=== PATIENT | female | born 1940 | race Caucasian/White ===

== ENCOUNTER 2017-03-29 15:49 | Inpatient (IN) | payer MEDICARE, BC ==
--- NOTE | ~2017-03-29 | CN ---
Consultation Report [facility] [address] [place]. [address] NAME: COLLEEN BOX : 38 STATUS : ADM IN PAT#: [id number] AGE: 76 ADM/REG DATE : 03/29/17 MR#: [id number] REPORT SERV DATE: 03/30/17 DICTATED BY: LUKASZ PALACIO III DATE: 03/30/17 REPORT STATUS : Draft TRANSCRIBED BY: MODNicole DATE: 03/30/17 SURGICAL CONSULTATION DATE OF CONSULTATION: HISTORY OF PRESENT ILLNESS: The patient is a 76-year-old diabetic obese female with a several-day history of draining wound, tenderness, and heat in the left lower abdomen. The patient has had a ventral hernia present for over a year that has been present in the middle portion of her abdomen and has been giving herself injections in the entire lower abdominal region for her insulin injections. She noticed the day prior to admission, which was 03/29/2017, redness and some purulent drainage. She came to the emergency room and was evaluated in the area supposedly drained in the ED. The patient has also complained of some redness and soreness in her right foot off and on since December of this year. She was hospitalized for cellulitis placed on antibiotics some time earlier this year. She has been off antibiotics for about a week and the redness has seemingly recurred. The patient's abdominal pain is described as superficial and localized in the area of redness and previous drainage site. The severity has been extremely high with a 10/10 reported. She denies fever, chills, diaphoresis, but she is on some steroids, which may blunt that effect. She denies shortness of breath or cough. She has been very weak and unstable over the last few days, has fallen several times. She has poorly controlled diabetes mellitus. Blood sugars often over 200. REVIEW OF SYSTEMS: Her review of systems is carefully reviewed and does not add further significance other than she states she has been gaining weight over the last few weeks, but is not sure quite how much weight. PAST MEDICAL HISTORY: Diabetes; COPD, on steroids; hypothyroidism; anemia; hypertension; high cholesterol; colon polyps with Dr. Ismael Espinosa; pulmonary nodules; MRSA infections in the past; depression and anxiety; but denies cardiac disease. PAST SURGICAL HISTORY: Include hysterectomy, large perianal and buttock abscess, drained by this physician in the past, actually done on 09/08/2014, where there is a left perianal abscess extending up to the buttocks that grew MRSA at that time. Further past history includes cholecystectomy, sinus surgery, left breast fatty tumor removal, tubal ligation, left knee surgery. ALLERGIES: SHE IS ALLERGIC TO PENICILLIN AND SULFA. SOCIAL HISTORY: She stopped smoking about five years ago and denies alcohol use. She is a since 2003 and has a sitter who stays with her 24 hours a day, seven days a week. Can get around with a walker or wheelchair with minimal assistance. FAMILY HISTORY: Hard to assess since she is adopted. Her daughter has a history of Consultation Report [address] [place]. [address] NAME: COLLEEN BOX : 38 STATUS : ADM IN [facility]#: [id number] AGE: 76 ADM/REG DATE : 03/29/17 MR#: [id number] REPORT SERV DATE: 03/30/17 DICTATED BY: LUKASZ PALACIO III DATE: 03/30/17 REPORT STATUS : Draft TRANSCRIBED BY: RENA DATE: 03/30/17 scleroderma and hypothyroidism and a strong family history of diabetes. CURRENT MEDICATIONS: Include albuterol, Lipitor, Symbicort, BuSpar, Klonopin, Cymbalta, Levemir 20 units subcu at nighttime, sliding scale insulin, Combivent, levothyroxine, Protonix, prednisone 10 mg daily, Zoloft 25 mg daily, Janumet b.i.d., telmisartan/hydrochlorothiazide 40/12.5 daily, Restoril p.o. at bedtime, and magnesium over the counter. PHYSICAL EXAMINATION: GENERAL: She is a very obese white female, in no acute distress at the time of this exam with some left lower quadrant abdominal pain. Her overall body habitus is morbidly obese. HEENT: Fairly nonlateralizing. She was a fairly good historian. NECK: Supple. CHEST: Some occasional rhonchi in the bases. HEART: She had a tachycardia with a regular sinus rhythm. ABDOMEN: Soft with tenderness around the area of the suprapubic and left lower quadrant and a firm feeling hernia in the mid abdomen near her umbilicus, which is protruding inferiorly due to her obesity. She has a significant panniculus with obvious skin injection reactions from multiple insulin injections. The hernia effect area is about 8 x 10 cm area of fullness and induration without tenderness. She has a 12 x 12 cm area of the left lower quadrant that is erythematous, indurated with tenderness, and a small 1 cm transverse incision, which was not open draining. Her bowel sounds were normal, but distant due to her body habitus. CT reviewed shows superficial air pockets in the area with some fat stranding, but little organized abscess was seen. Her procalcitonin 0.5 and her leukocytosis went from 15 to 14 in the last 24 hours. EXTREMITIES: Her right lower extremity shows good pulses in both lower extremities with mild erythema in the right foot with minimal tenderness. No ulceration or site for entry for cellulitic changes. IMPRESSION: The patient has cellulitis with a small abscess area in the left lower abdominal region that is inadequately drained. At this point, needs to be opened more and packed open with a more deep culture, although with her on antibiotics, this may be not productive. She has mild cellulitis of the right foot, which is resolving and no further therapy other than and IV antibiotics will be recommended. She has hernia in the chronic ventral area that is incarcerated, but not strangulated and no surgical intervention would be recommended on this in the foreseeable future. In addition, she has problems with diabetes mellitus, poorly controlled, and hemoglobin A1c elevated at 8.2. She has chronic obstructive pulmonary disease on steroids, which certainly masked some of her effects. We will try to open the area of drainage and pack it so that we can get more decompression. Continue antibiotics, cultures, and may well need to add more broad-spectrum coverage until cultures can be assessed. Surgical wound healing consult orders for incision tray with informed consent having been given and the patient's risk of surgical drainage described to her at length. Consultation Report [address] [place]. [address] NAME: COLLEEN BOX : 38 STATUS : ADM IN [facility]#: [id number] AGE: 76 ADM/REG DATE : 03/29/17 MR#: [id number] REPORT SERV DATE: 03/30/17 DICTATED BY: LUKASZ PALACIO III DATE: 03/30/17 REPORT STATUS : Draft TRANSCRIBED BY: RENA DATE: 03/30/17 RB/KARLL Lukasz Palacio III, M.D. / [id number] CC: Khurram Lambert M.D. [facility]
--- NOTE | ~2017-03-29 | DS ---
Discharge Summary [facility] [address] [place]. [address] NAME: COLLEEN BOX : 38 STATUS : ADM IN [facility]#: [id number] AGE: 76 ADM/REG DATE : 03/29/17 MR#: [id number] REPORT SERV DATE: 04/04/17 DICTATED BY: BENJAMÍN QUIGLEY DATE: 04/04/17 REPORT STATUS : Draft TRANSCRIBED BY: MODL DATE: 04/04/17 ADMISSION DATE: 03/29/2017 DISCHARGE DATE: 04/04/2017 CURRENT HOSPITAL DIAGNOSES: Abdominal wall Methicillin-resistant Staphylococcus aureus abscess, status post incision and drainage, right foot cellulitis, diabetes, chronic obstructive pulmonary disease, and right breast pimple. CONSULTATIONS AND PROCEDURES: As listed in interim summary. CURRENT PHYSICAL FINDINGS AND HPI: Please see initial dictated H and P by Dr. Lambert on the as well as interim summary by Dr. Finn on the . I took over the patient's care on the and will dictate from that point. Basically, the patient has had MRSA in the past, came in with a lower abdominal and possible right breast lesion, status post I and D, was on vancomycin. Plan was to discontinue on oral Zyvox. Other issues while she was hospitalized, she did receive treatment for her diabetes. She had no significant flare for COPD. When it was noted that she had medication interactions multiple with oral Zyvox, it was elected to transfer to [facility] to continue her IV antibiotics, post treatment. The patient was agreeable. She received a PICC line and was discharged in stable condition on the . DISCHARGE MEDICATIONS: Lipitor 20 at bedtime; BuSpar 15 b.i.d.; vancomycin; Cymbalta 60 b.i.d.; Levemir 20, level 3 sliding scale with 5 units of NovoLog in addition with meals; levothyroxine 75; magnesium 400; Bactroban cream to her nose and skin areas; Protonix 40; Florastor b.i.d.; Zoloft 25; Restoril 30; Klonopin 1 mg; prednisone 5, a dose decreased from 10; Combivent inhaler; Symbicort 160/4.5 two puffs twice daily; Tylenol p.r.n.; Colace p.r.n.; glucose tablet p.r.n.; Zofran p.r.n.; Percocet q.6 h. p.r.n.; albuterol nebs q.i.d.; Janumet ; Micardis hydrochlorothiazide 40/12.5. TLF/MODL Benjamín Quigley M.D. / [id number] CC: Rodrigo Geiger NATHAN
--- NOTE | ~2017-03-29 | HP ---
History And Physical [facility] [id number] [place]. [address] NAME: COLLEEN BOX : 38 STATUS : ADM IN [facility]#: [id number] AGE: 76 ADM/REG DATE : 03/29/17 MR#: [id number] REPORT SERV DATE: 03/30/17 DICTATED BY: RADHA VALDEZ DATE: 03/29/17 REPORT STATUS : Draft TRANSCRIBED BY: MODL DATE: 03/29/17 DATE OF ADMISSION: 03/29/2017 CHIEF COMPLAINT: A 76-year-old female, presenting with draining abdominal wound. HISTORY OF PRESENT ILLNESS: The patient's history was obtained through careful interview with the patient and the sitter, coupled with review of [facility] medical records. The patient has been dealing with a ventral hernia for more than a year, but she has noticed over the last week or more has been increasing swelling, redness, and pain in this area. It was not until the day leading up to admission that began to develop redness and slight purulent drainage. She came in to our emergency department and it was determined that she had an abscess that was partially drained in the emergency department and sent for cultures. The patient has also been suffering with redness in her right foot since December 2016. She was initially hospitalized earlier than that in 2017 for "cellulitis," placed on antibiotics and had complete resolution of the discoloration of her foot but then after being off antibiotics for just about a week, the redness resumed and in particular over the last one or two weeks, the redness has become "lino red" in color and increasingly hot and painful. There has been slight discoloration and redness of the left foot as well. The patient has had outpatient evaluation by a vascular surgeon, with what sounds like arterial and venous Doppler ultrasounds that have been "negative." The patient describes mostly just suprapubic abdominal discomfort related to her infection. It radiates upward into her abdomen, it has an aching quality. She has been "in tears" because of the pain, it gets up to 10/10 in severity. She has had no fevers or chills or diaphoresis, but she has had hot flashes, and a flushed feeling in her face. No shortness of breath. She has a chronic cough that is unchanged from baseline. No diarrhea, no nausea or vomiting. She has been weak, unstable, and over the last three days, her sitter claims that she has fallen about 10 times. She never hit her head or injures herself fortunately. She has had poorly controlled diabetes. Recently most blood sugars over 200. The maximum was about 330 earlier this week. REVIEW OF SYSTEMS: Otherwise, a 14-point review of systems was obtained and was negative. PAST MEDICAL HISTORY: 1. Diabetes. 2. COPD. 3. Hypothyroidism. History And Physical [address] [address] NAME: COLLEEN BOX : 38 STATUS : ADM IN PAT#: [id number] AGE: 76 ADM/REG DATE : 03/29/17 MR#: [id number] REPORT SERV DATE: 03/30/17 DICTATED BY: RADHA VALDEZ DATE: 03/29/17 REPORT STATUS : Draft TRANSCRIBED BY: RENA DATE: 03/29/17 4. Anemia. 5. Hypertension. 6. Elevated cholesterol. 7. Colon polyps seen by Dr. Ismael Espinosa. 8. Pulmonary nodules. 9. MRSA recurrent infections. 10.Depression and anxiety. 11.No cardiac disease. PAST SURGICAL HISTORY: 1. Hysterectomy. 2. Buttocks abscess drainage by Dr. Palacio. 3. Cholecystectomy. 4. Sinus surgery. 5. Left breast fatty tumor removal. 6. Tubal ligation. 7. Left knee surgery. ALLERGIES: PENICILLIN AND SULFA. SOCIAL HISTORY: Quit smoking some 5 years ago. No alcohol abuse. Has been a since 2003, has a sitter who stays with her 24 hours a day 7 days a week. She gets around with a walker or a wheelchair. FAMILY HISTORY: She was adopted. Her daughter has scleroderma and hypothyroidism. There is also an apparent family history of diabetes. CURRENT MEDICATIONS: Include albuterol inhaler, Lipitor 20 mg p.o. daily, Symbicort two puffs inhaled twice a day, BuSpar 15 mg p.o. b.i.d., Klonopin 1 mg p.o. at bedtime, Cymbalta 60 mg p.o. b.i.d., Levemir 20 units subcutaneous in the nighttime sliding scale insulin, Combivent, levothyroxine 75 mcg p.o. daily, Protonix 40 mg p.o. daily, prednisone 10 mg p.o. daily, Zoloft 25 mg p.o. daily, Janumet p.o. b.i.d., telmisartan/hydrochlorothiazide 40/12.5 p.o. daily, Restoril 30 mg p.o. at bedtime, and magnesium. PHYSICAL EXAMINATION: VITAL SIGNS: Temperature 98.4, pulse 108, blood pressure 130/76, respiratory rate 22, O2 saturation 95% on 2 L nasal cannula. GENERAL: A pleasant, cooperative female, in no evidence of distress at this time. Her pain has been well managed in the emergency department. HEENT: Pupils equal, round, and reactive to light. No conjunctival pallor. No scleral icterus. Nares are patent. Oropharynx is clear of obstruction. Moist mucous membranes. NECK: Trachea midline. No thyromegaly. LYMPH: No cervical lymphadenopathy. No supraclavicular lymphadenopathy. No inguinal lymphadenopathy. RESPIRATORY: Clear to auscultation at bases. No wheezes, rales, or rhonchi. Normal respiratory effort. CARDIOVASCULAR: Tachycardic, regular rhythm. No murmurs, rubs, or gallops. No extremity History And Physical [address] [address] NAME: COLLEEN BOX : 38 STATUS : ADM IN [facility]#: [id number] AGE: 76 ADM/REG DATE : 03/29/17 MR#: [id number] REPORT SERV DATE: 03/30/17 DICTATED BY: RADHA VALDEZ DATE: 03/29/17 REPORT STATUS : Draft TRANSCRIBED BY: RENA DATE: 03/29/17 edema is appreciated. ABDOMEN: Soft, minimally tender around the area of her suprapubic and lower abdominal hernia and abscess. No guarding, no rebound. Nondistended. No hepatosplenomegaly. DERMATOLOGICAL: The patient's right foot is hot and very red, tender to palpation. No ulcerations though. No purulent drainage. Over her abdominal wall, there is an extensive area of erythema, heat, swelling, tenderness, and drainage from a site made by the emergency department for drainage of pus, otherwise warm and dry. EXTREMITIES: No pallor, no cyanosis. PSYCHIATRIC: Normal affect. Good mood. Alert and oriented x3. LABORATORY DATA: White blood count 15, hemoglobin 12, hematocrit 36, platelets 258. Sodium 132, potassium 4.1, chloride 190, bicarb 38, BUN 9, creatinine 0.84, glucose 170. STUDIES: CT scan of the abdomen and pelvis is pending at the time of dictation. ASSESSMENT AND PLAN: 1. Sepsis with positive criteria that includes white blood cell count of 15, tachycardia, and tachypnea. Check blood cultures. Check wound cultures. Place on IV vancomycin for history of recurrent MRSA. 2. Abdominal wall abscess. Consult surgeon, Dr. Palacio, who has been involved with the patient in the past. Check a CT scan of the abdomen and pelvis to define extent of abscess. Check wound culture. Placed on IV vancomycin. 3. Right foot cellulitis. Placed on IV vancomycin. History of MRSA. 4. Diabetes. Check hemoglobin A1c. Placed on basal insulin and sliding scale insulin. 5. Chronic obstructive pulmonary disease, placed on DuoNeb nebulizers. KPL/MODL Radha Valdez M.D. / [id number] CC: Rodrigo France Dr.
--- NOTE | ~2017-03-29 | DS ---
Discharge Summary [facility] [facility] [address] [place]. [address] NAME: COLLEEN BOX : 38 STATUS : ADM IN [facility]#: [id number] AGE: 76 ADM/REG DATE : 03/29/17 MR#: [id number] REPORT SERV DATE: 04/05/17 DICTATED BY: BENJAMÍN QUIGLEY DATE: 04/05/17 REPORT STATUS : Draft TRANSCRIBED BY: MODL DATE: 04/05/17 ADMISSION DATE: 03/29/2017 DISCHARGE DATE: ADDENDUM: Ms. Box was discharged on 04/04; however, accepting facility required a bariatric bed for her, which could not be provided on the evening at discharge. On reassessment today, there has been no change in the patient's condition and she is still felt stable for discharge. DISPOSITION: Discharge to rehab when bed available. MEGANF/RENA Benjamín Quigley M.D. / [id number] CC: Rodrigo Geiger Nathan
--- NOTE | ~2017-03-29 | OP ---
Record Of Operation [facility] [address] [place]. [address] NAME: COLLEEN BOX : 38 STATUS : ADM IN PAT#: [id number] AGE: 76 ADM/REG DATE : 03/29/17 MR#: [id number] REPORT SERV DATE: 04/02/17 DICTATED BY: LUKASZ PALACIO III DATE: 03/30/17 REPORT STATUS : Draft TRANSCRIBED BY: MODL DATE: 03/30/17 DATE OF PROCEDURE: 03/30/2017 The time-out was held in agreement with all personnel about allergies and procedure to be for performed and equipment available was noted. PROCEDURE: Incision and drainage with culture and sensitivity for anaerobic, aerobic, and fungus, with packing of an abscess area in the left lower quadrant of the abdomen with half- inch iodoform gauze. ANESTHESIA: 0.5 mg of Dilaudid IV, 2% lidocaine local infiltration, 20 mL utilized. The patient tolerated the procedure well. Procedure done with culture and sensitivity. ESTIMATED BLOOD LOSS: 10 mL. PACKING: One-half inch iodoform gauze and one piece packed into the abscess cavity and broken up loculations. PROCEDURE IN DETAIL: The patient was prepped and draped in the routine fashion under adequate infiltrative anesthesia after an appropriate time-out had been performed. A small area where there had been an incision performed about 24 hours ago in the ED was lengthened to 3 cm size and digital breaking up of loculations in the area accomplished. Curved Crile hemostat was also used to break up loculations with copious bleeding incurred, which was controlled by silver nitrate and packing. The cavitary area was approximately 6 x 4 cm beneath the incision, but did not extend below the fascia. This was in the left lower quadrant region. After this had been done and all loculations lysed, the opening was packed with approximately 3-1/2 feet of half-inch iodoform gauze leaving the tail of the gauze hanging out for further packing and removal. The wound was then dressed with bulky dressing material. Culture and sensitivity requested. The patient will be covered with the Vancocin, which is already instituted, and add Levaquin, Flagyl, and Florastor as a probiotic. A K-pad will be utilized and topical SilvaSorb gel to the periwound and the area also performed. The right foot where some cellulitic changes had been noted was also ordered to have some topical SilvaSorb gel to the area, although this was a very mild cellulitic change clinically. RB/MODL Lukasz Palacio III, M.D. / [id number] Record Of [address] [address] NAME: COLLEEN BOX : 38 STATUS : ADM IN PAT#: [id number] AGE: 76 ADM/REG DATE : 03/29/17 MR#: [id number] REPORT SERV DATE: 04/02/17 DICTATED BY: LUKASZ PALACIO III DATE: 03/30/17 REPORT STATUS : Draft TRANSCRIBED BY: RENA DATE: 03/30/17 CC: Rodrigo [facility] [place]
--- NOTE | ~2017-03-29 | IDS ---
Interim Discharge Summary [facility] [address] [place]. [address] NAME: COLLEEN BOX : 38 STATUS : ADM IN [facility]#: [id number] AGE: 76 ADM/REG DATE : 03/29/17 MR#: [id number] REPORT SERV DATE: 04/03/17 DICTATED BY: NOVA LOCKE DATE: 04/03/17 REPORT STATUS : Draft TRANSCRIBED BY: MODL DATE: 04/03/17 ADMISSION DATE: 03/29/2017 DISCHARGE DATE: DATE OF INTERIM SUMMARY: 03/29/2017 to 04/02/2017 CURRENT DIAGNOSES: 1. Abdominal wall MRSA abscess, status post surgical debridement by Dr. Palacio. 2. Right foot cellulitis. 3. Sepsis present on arrival. 4. Diabetes type 2. 5. Chronic obstructive pulmonary disease. 6. Right breast pimple. PROCEDURES AND CONSULT: Dr. Palacio, with surgical drainage of abscess, positive for MRSA. HOSPITAL COURSE: Please see H and P for complete details. HISTORY OF PRESENT ILLNESS: Briefly, Ms. Box is a 76-year-old female from the [facility] who presents after having severe symptoms of tachycardia, tachypnea, and additionally found to have leukocytosis, has had history of MRSA infection and found to have abdominal wall abscess, was started on vancomycin. After surgical debridement, was started on Levaquin and Flagyl additionally for additional coverage. The patient had clinical improvement after surgical I and D and broad antibiotics. Cultures have since returned MRSA and have been titrated back down to vancomycin. The patient's symptoms have improved, although still has occasionally have mild tachypnea and tachycardia. Leukocytosis has resolved. The patient does have concurrent foot cellulitis with chronic venous stasis. Cellulitis has shown improvement. Additionally has tinea, which will need to be addressed once acute infection has improved. For diabetes type 2, the patient has had increased in Levemir and monitoring on sliding scale insulin. The patient is on chronic prednisone which could be confounding factor with COPD history, O2, and ipratropium. The patient has had development of right breast pimple and currently monitoring this for drainage. The patient currently is continued on vancomycin treatment and may be able to transition to p.o. treatment in the next 24 to 48 hours for possible disposition. Pending clearance from surgery and her continued improvement in abscess, cellulitis. We will need to continue following of small breast pimple for possible cause of additional cellulitis. DDN/MODL Nova Locke MD / [id number] Interim Discharge Summary [address] [address] NAME: COLLEEN BOX : 38 STATUS : ADM IN PAT#: [id number] AGE: 76 ADM/REG DATE : 03/29/17 MR#: [id number] REPORT SERV DATE: 04/03/17 DICTATED BY: NOVA LOCKE DATE: 04/03/17 REPORT STATUS : Draft TRANSCRIBED BY: RENA DATE: 04/03/17 CC: MD Donal Beltran DO
[~2017-03-29 15:49] MED LIST: *UNABLE2; ACET500CAP PO; ADDER10 PO; ADDERALL; ADDERALL20 MG PO; ADDERALL30 MG PO; ADDERALL5 MG PO; ALBUTEROL5 INH; ALIGN4 MG PO; AMARYL1 MG PO; AMBIEN CR12.5 MG PO; BEN25 PO; BIAXIN5 PO; BIOTENE RINSE PO; BUSPAR15 M1 PO; BUSPAR30 MG PO; CENTRUM TAB1 TAB PO; COMBIVENT INH; CYMBALTA30 PO; CYMBALTA60 PO; DALIRESP500 MCG PO; GAS-X80 MG PO; HYDROCORT12 TOP; IBU400 PO; IOPHEN C-NR1 ML OR; JANUMET1 TA1 PO; JANUMET1 TAB PO; KLONO1 PO; KLONO5 PO; LEVOTHYROXIN50 MCG PO; LIPITOR20 PO; MAGTRATE500 MG PO; MICARDIS HC1 PO; NASONEX NAS; NYS500UDL PO; OTC IRON PO; P10 PO; PROAIR HFA INH; PROTONIX PO; PROVENTSOL INH; PROZAC40 MG PO; RESTORIL30 MG PO; SPIRIVA INH; SUDAFED PO; SYMBICORT; SYMBICORT 160/41 INH INH; SYN.05 PO; SYN075 PO; TETRACYCLINE250 MG PO; TYLENOL 8 HR650 MG PO; TYLENOL ARTH650 MG PO; VYVANSE30 MG OR; XANAX1 MG PO; [UNRECOGNIZED DRUG - SUPPLY] EX
[2017-03-29 16:27] LABS: BASOPHILS 0.1 %; BASOPHILS ABSOLUTE 0.02 10/3/uL (0.0-0.16); EOSINOPHILS 0.3 %; EOSINOPHILS ABSOLUTE 0.05 10/3/uL (0.0-0.53); HEMATOCRIT 36.2 % (36.0-48.0); HEMOGLOBIN 12.3 g/dL (12.0-16.0); IMMATURE GRANULOCYTES 0.5 %; IMMATURE GRANULOCYTES ABSOLUTE 0.08 10/3/uL (0.0-0.11); LYMPHOCYTES 5.1 %; LYMPHOCYTES ABSOLUTE 0.78 10/3/uL (0.67-4.30); MEAN PLATELET VOLUME 9.1 fL (9.2-13.0); MONOCYTES 8.7 %; MONOCYTES ABSOLUTE 1.33 10/3/uL (0.21-1.20); NEUTROPHILS 85.3 %; NEUTROPHILS ABSOLUTE 12.99 10/3/uL (2.02-8.40); PLATELET COUNT 258 10/3/uL (150-400); RBC DISTRIBUTION WIDTH 13.1 % (12.0-16.0); RED CELL COUNT 3.71 10/6/uL (4.0-5.6); WHITE BLOOD CELLS 15.3 10/3/uL (4.5-10.5)
[2017-03-29 16:30] LABS: MANUAL DIFF NO %; MEAN CORPUSCULAR HEMOGLOB 33.2 pg (26.0-34.0); MEAN CORPUSCULAR VOLUME 97.6 fL (80-100)
[2017-03-29 16:44] LABS: A/G RATIO 0.8 (0.7-1.9); ALBUMIN 3.6 G/DL (3.5-5.0); ALKALINE PHOSPHATASE 91 U/L (45-117); BUN (BLOOD UREA NITROGEN) 9 MG/DL (6-23); CALCIUM, SERUM 9.4 MG/DL (8.5-10.4); CHLORIDE, SERUM 90 MMOL/L (96-112); CO2 (CARBON DIOXIDE) 38 MMOL/L (24-34); CREATININE 0.84 MG/DL (0.55-1.02); GFR AFRICAN AMERICAN 77 ML/MIN (>=60); GFR NON AFRICAN AMERICAN 67 ML/MIN (>=60); GLOBULIN 4.3 G/DL (2.5-4.1); GLUCOSE, SERUM 170 MG/DL (60-99); POTASSIUM, SERUM 4.1 MMOL/L (3.5-5.3); SGOT(AST) 21 U/L (5-40); SGPT(ALT) 41 U/L (5-65); SODIUM, SERUM 132 MMOL/L (135-148); TOTAL BILIRUBIN 0.6 MG/DL (0-1.2); TOTAL PROTEIN 7.9 G/DL (6.0-8.5)
[2017-03-29] MEDS ORDERED: JANUMET1 TA1 PO (17:32)
[2017-03-29] MEDS ORDERED: CYMBALTA60 PO (17:33)
[2017-03-29] MEDS ORDERED: BUSPAR15 M1 PO (17:33)
[2017-03-29] MEDS ORDERED: ZOLOFT25 MG PO (17:34)
[2017-03-29] MEDS ORDERED: PROTONIX PO (17:35)
[2017-03-29] MEDS ORDERED: P10 PO (17:35)
[2017-03-29] MEDS ORDERED: MAGNESIUM OXIDE TAB PO (17:36)
[2017-03-29] MEDS ORDERED: LEVOTHYROXIN75 MCG PO (17:36)
[2017-03-29] MEDS ORDERED: RESTORIL30 MG PO (17:37)
[2017-03-29] MEDS ORDERED: LIPITOR20 PO (17:37)
[2017-03-29] MEDS ORDERED: MICARDIS HC1 PO (17:37)
[2017-03-29] MEDS ORDERED: KLONO1 PO (17:37)
[2017-03-29] MEDS ORDERED: SYMBICORT 160/41 INH INH (17:42)
[2017-03-29] MEDS ORDERED: COMBIVENT RESPIM4 GM INH (17:42)
[2017-03-29] MEDS ORDERED: HUMALOG SC (17:43)
[2017-03-29] MEDS ORDERED: ALBUTEROL0.083 % INH (17:43)
[2017-03-29] MEDS ORDERED: LEVEMIR SC (17:44)
[2017-03-30 07:01] LABS: PROTIME (NOT ORD) 12.7 SEC (12.0-14.5)
[2017-03-30 07:03] LABS: PARTIAL THROMBO TIME 34.9 SEC (22.5-37.2)
[2017-03-30 07:11] LABS: BASOPHILS 0.2 %; BASOPHILS ABSOLUTE 0.03 10/3/uL (0.0-0.16); EOSINOPHILS 1.5 %; EOSINOPHILS ABSOLUTE 0.21 10/3/uL (0.0-0.53); HEMATOCRIT 34.9 % (36.0-48.0); IMMATURE GRANULOCYTES 0.8 %; IMMATURE GRANULOCYTES ABSOLUTE 0.11 10/3/uL (0.0-0.11); LYMPHOCYTES 15.2 %; LYMPHOCYTES ABSOLUTE 2.12 10/3/uL (0.67-4.30); MANUAL DIFF NO %; MEAN CORPUS HGB CONC 34.4 g/dL (32.0-36.0); MEAN CORPUSCULAR HEMOGLOB 33.2 pg (26.0-34.0); MEAN CORPUSCULAR VOLUME 96.7 fL (80-100); MEAN PLATELET VOLUME 9.1 fL (9.2-13.0); MONOCYTES 11.1 %; MONOCYTES ABSOLUTE 1.55 10/3/uL (0.21-1.20); NEUTROPHILS 71.2 %; NEUTROPHILS ABSOLUTE 9.97 10/3/uL (2.02-8.40); PLATELET COUNT 241 10/3/uL (150-400); RBC DISTRIBUTION WIDTH 13.5 % (12.0-16.0); RED CELL COUNT 3.61 10/6/uL (4.0-5.6)
[2017-03-30 07:23] LABS: A/G RATIO 0.8 (0.7-1.9); ALBUMIN 3.4 G/DL (3.5-5.0); ALKALINE PHOSPHATASE 82 U/L (45-117); BUN (BLOOD UREA NITROGEN) 8 MG/DL (6-23); CALCIUM, SERUM 9.2 MG/DL (8.5-10.4); CHLORIDE, SERUM 92 MMOL/L (96-112); CO2 (CARBON DIOXIDE) 33 MMOL/L (24-34); CREATININE 0.84 MG/DL (0.55-1.02); GFR AFRICAN AMERICAN 77 ML/MIN (>=60); GFR NON AFRICAN AMERICAN 67 ML/MIN (>=60); GLOBULIN 4.1 G/DL (2.5-4.1); GLUCOSE, SERUM 223 MG/DL (60-99); POTASSIUM, SERUM 3.7 MMOL/L (3.5-5.3); SGOT(AST) 21 U/L (5-40); SGPT(ALT) 37 U/L (5-65); SODIUM, SERUM 135 MMOL/L (135-148); TOTAL BILIRUBIN 0.6 MG/DL (0-1.2); TOTAL PROTEIN 7.5 G/DL (6.0-8.5)
[2017-03-30 08:07] LABS: PROCALCITONIN <0.05 ng/mL (<0.5)
[2017-03-31 07:03] LABS: BASOPHILS 0.2 %; BASOPHILS ABSOLUTE 0.03 10/3/uL (0.0-0.16); EOSINOPHILS 2.1 %; EOSINOPHILS ABSOLUTE 0.25 10/3/uL (0.0-0.53); HEMATOCRIT 35.4 % (36.0-48.0); IMMATURE GRANULOCYTES 0.9 %; IMMATURE GRANULOCYTES ABSOLUTE 0.11 10/3/uL (0.0-0.11); LYMPHOCYTES 12.6 %; LYMPHOCYTES ABSOLUTE 1.53 10/3/uL (0.67-4.30); MEAN CORPUS HGB CONC 33.9 g/dL (32.0-36.0); MEAN CORPUSCULAR HEMOGLOB 33.9 pg (26.0-34.0); MONOCYTES 12.7 %; MONOCYTES ABSOLUTE 1.54 10/3/uL (0.21-1.20); NEUTROPHILS 71.5 %; NEUTROPHILS ABSOLUTE 8.68 10/3/uL (2.02-8.40); PLATELET COUNT 240 10/3/uL (150-400); RBC DISTRIBUTION WIDTH 13.3 % (12.0-16.0); RED CELL COUNT 3.54 10/6/uL (4.0-5.6); WHITE BLOOD CELLS 12.1 10/3/uL (4.5-10.5)
[2017-03-31 07:08] LABS: BUN (BLOOD UREA NITROGEN) 6 MG/DL (6-23); CO2 (CARBON DIOXIDE) 32 MMOL/L (24-34); GLUCOSE, SERUM 230 MG/DL (60-99)
[2017-03-31 07:15] LABS: MANUAL DIFF NO %
[2017-03-31 07:19] LABS: CHLORIDE, SERUM 94 MMOL/L (96-112); CREATININE 0.75 MG/DL (0.55-1.02); GFR AFRICAN AMERICAN 88 ML/MIN (>=60); GFR NON AFRICAN AMERICAN 76 ML/MIN (>=60); POTASSIUM, SERUM 3.5 MMOL/L (3.5-5.3); SODIUM, SERUM 134 MMOL/L (135-148)
[2017-04-01 08:21] LABS: BASOPHILS 0.3 %; BASOPHILS ABSOLUTE 0.03 10/3/uL (0.0-0.16); EOSINOPHILS 1.9 %; HEMATOCRIT 35.2 % (36.0-48.0); HEMOGLOBIN 11.7 g/dL (12.0-16.0); IMMATURE GRANULOCYTES 2.2 %; IMMATURE GRANULOCYTES ABSOLUTE 0.23 10/3/uL (0.0-0.11); LYMPHOCYTES ABSOLUTE 1.36 10/3/uL (0.67-4.30); MEAN CORPUS HGB CONC 33.2 g/dL (32.0-36.0); MEAN CORPUSCULAR HEMOGLOB 33.1 pg (26.0-34.0); MEAN CORPUSCULAR VOLUME 99.7 fL (80-100); MEAN PLATELET VOLUME 8.9 fL (9.2-13.0); MONOCYTES 13.4 %; NEUTROPHILS 69.2 %; NEUTROPHILS ABSOLUTE 7.24 10/3/uL (2.02-8.40); PLATELET COUNT 234 10/3/uL (150-400); RBC DISTRIBUTION WIDTH 13.3 % (12.0-16.0); RED CELL COUNT 3.53 10/6/uL (4.0-5.6); WHITE BLOOD CELLS 10.5 10/3/uL (4.5-10.5)
[2017-04-01 08:22] LABS: MANUAL DIFF NO %
[2017-04-01 08:37] LABS: VANCOMYCIN TROUGH 10.5 MCG/ML (10.0-20.0)
[2017-04-02 05:38] LABS: HEMOGLOBIN 10.9 g/dL (12.0-16.0); MEAN CORPUS HGB CONC 34.1 g/dL (32.0-36.0); MEAN CORPUSCULAR HEMOGLOB 33.5 pg (26.0-34.0); MEAN CORPUSCULAR VOLUME 98.5 fL (80-100); MEAN PLATELET VOLUME 8.6 fL (9.2-13.0); PLATELET COUNT 217 10/3/uL (150-400); RBC DISTRIBUTION WIDTH 13.4 % (12.0-16.0); RED CELL COUNT 3.25 10/6/uL (4.0-5.6); WHITE BLOOD CELLS 8.9 10/3/uL (4.5-10.5)
[2017-04-02 05:40] LABS: MANUAL DIFF YES %
[2017-04-02 05:50] LABS: BUN (BLOOD UREA NITROGEN) 4 MG/DL (6-23); CALCIUM, SERUM 8.5 MG/DL (8.5-10.4); CHLORIDE, SERUM 99 MMOL/L (96-112); CO2 (CARBON DIOXIDE) 38 MMOL/L (24-34); CREATININE 0.62 MG/DL (0.55-1.02); GFR AFRICAN AMERICAN 100 ML/MIN (>=60); GFR NON AFRICAN AMERICAN 86 ML/MIN (>=60); GLUCOSE, SERUM 220 MG/DL (60-99); POTASSIUM, SERUM 3.3 MMOL/L (3.5-5.3); SODIUM, SERUM 140 MMOL/L (135-148)
[2017-04-02 06:13] LABS: BAND NEUTROPHILS 3 %; EOSINOPHILS 3 %; EOSINOPHILS ABSOLUTE (CALC) 0.27 10/3/uL (0.0-0.53); IMMATURE GRANS ABSOLUTE (CALC) 0.09 10/3/uL (0.0-0.11); LYMPHOCYTES 21 %; LYMPHOCYTES ABSOLUTE (CALC) 1.87 10/3/uL (0.67-4.30); MONOCYTES 8 %; MONOCYTES ABSOLUTE (CALC) 0.71 10/3/uL (0.21-1.20); MYELOCYTES 1 %; NEUTROPHILS ABSOLUTE (CALC) 5.96 10/3/uL (2.02-8.40); PLATELET ESTIMATE ADQ (ADEQUATE); RBC MORPHOLOGY NORM (NORMAL); SEGMENTED NEUTROPHIL (0) 64 %; TOTAL NUCLEATED CELLS 100
[2017-04-03 05:54] LABS: BASOPHILS 0.4 %; BASOPHILS ABSOLUTE 0.04 10/3/uL (0.0-0.16); EOSINOPHILS 3.6 %; EOSINOPHILS ABSOLUTE 0.34 10/3/uL (0.0-0.53); HEMATOCRIT 33.6 % (36.0-48.0); HEMOGLOBIN 11.3 g/dL (12.0-16.0); IMMATURE GRANULOCYTES 3.2 %; LYMPHOCYTES 18.5 %; LYMPHOCYTES ABSOLUTE 1.74 10/3/uL (0.67-4.30); MANUAL DIFF NO %; MEAN CORPUS HGB CONC 33.6 g/dL (32.0-36.0); MEAN CORPUSCULAR HEMOGLOB 33.4 pg (26.0-34.0); MEAN CORPUSCULAR VOLUME 99.4 fL (80-100); MEAN PLATELET VOLUME 8.6 fL (9.2-13.0); MONOCYTES 14.9 %; NEUTROPHILS 59.4 %; NEUTROPHILS ABSOLUTE 5.59 10/3/uL (2.02-8.40); PLATELET COUNT 236 10/3/uL (150-400); RBC DISTRIBUTION WIDTH 13.4 % (12.0-16.0); RED CELL COUNT 3.38 10/6/uL (4.0-5.6); WHITE BLOOD CELLS 9.4 10/3/uL (4.5-10.5)
[2017-04-03 05:56] LABS: CALCIUM, SERUM 9.2 MG/DL (8.5-10.4); CHLORIDE, SERUM 100 MMOL/L (96-112); CO2 (CARBON DIOXIDE) 35 MMOL/L (24-34); CREATININE 0.74 MG/DL (0.55-1.02); GFR AFRICAN AMERICAN 90 ML/MIN (>=60); GFR NON AFRICAN AMERICAN 78 ML/MIN (>=60); GLUCOSE, SERUM 239 MG/DL (60-99); SODIUM, SERUM 142 MMOL/L (135-148)
[2017-04-03 05:57] LABS: BUN (BLOOD UREA NITROGEN) 8 MG/DL (6-23); POTASSIUM, SERUM 4.2 MMOL/L (3.5-5.3)
[2017-04-05 06:14] LABS: BUN (BLOOD UREA NITROGEN) 6 MG/DL (6-23); CALCIUM, SERUM 8.7 MG/DL (8.5-10.4); CHLORIDE, SERUM 98 MMOL/L (96-112); CO2 (CARBON DIOXIDE) 38 MMOL/L (24-34); CREATININE 0.69 MG/DL (0.55-1.02); GFR AFRICAN AMERICAN 97 ML/MIN (>=60); GFR NON AFRICAN AMERICAN 83 ML/MIN (>=60); GLUCOSE, SERUM 239 MG/DL (60-99); POTASSIUM, SERUM 3.5 MMOL/L (3.5-5.3); SODIUM, SERUM 137 MMOL/L (135-148); VANCOMYCIN TROUGH 15.4 MCG/ML (10.0-20.0)
== END 2017-04-05 19:00 | DRG 872 ==
LOC: ER 15:49 → 4SO 18:37
PROVIDERS: Hospitalist; Internal Medicine; Physician Assistant; Student in an Organized Health Care Education/Training Program
DX: A41.02 Sepsis due to Methicillin resistant Staphylococcus aureus (principal); E11.628 Type 2 diabetes mellitus with other skin complications; E11.65 Type 2 diabetes mellitus with hyperglycemia; L02.211 Cutaneous abscess of abdominal wall; L03.115 Cellulitis of right lower limb; Z68.41 Body mass index [BMI] 40.0-44.9, adult; J44.9 Chronic obstructive pulmonary disease, unspecified; E66.9 Obesity, unspecified; E03.9 Hypothyroidism, unspecified; F41.8 Other specified anxiety disorders; E78.00 Pure hypercholesterolemia, unspecified; Z79.4 Long term (current) use of insulin; Z79.84 Long term (current) use of oral hypoglycemic drugs; Z79.52 Long term (current) use of systemic steroids; Z79.899 Other long term (current) drug therapy; Z87.891 Personal history of nicotine dependence; Z86.010 Personal history of colon polyps; Z88.2 Allergy status to sulfonamides; Z88.0 Allergy status to penicillin; I87.8 Other specified disorders of veins; R23.8 Other skin changes; F32.9 Major depressive disorder, single episode, unspecified; F41.9 Anxiety disorder, unspecified; K43.9 Ventral hernia without obstruction or gangrene
CPT/HCPCS: 36569; 71010; 74177; 80048; 80053; 80202; 82962; 83036; 83735; 84145; 84443; 85025; 85610; 85730; 87040; 87070; 87075; 87077; 87102; 87186; 87205; 93970; 94640; 96365; 97162-GP; 99284; A9270-GY; C1751; G8978-CK-GP; G8979-CJ-GP; J1170; J3370; Q9967

== ENCOUNTER 2017-05-05 21:49 | Emergency (ER) | payer MEDICARE, BC ==
[~2017-05-05 21:49] MED LIST changes: +ALBUTEROL0.083 % INH; +COMBIVENT RESPIM4 GM INH; +HUMALOG SC; +LEVEMIR SC; +LEVOTHYROXIN75 MCG PO; +MAGNESIUM OXIDE TAB PO; +ZOLOFT25 MG PO
== END 2017-05-06 00:21 | disposition home or self-care (01) ==
LOC: ER 21:49
DX: M25.512 Pain in left shoulder (principal); J44.9 Chronic obstructive pulmonary disease, unspecified; I10 Essential (primary) hypertension; F41.9 Anxiety disorder, unspecified; F32.9 Major depressive disorder, single episode, unspecified; Z90.710 Acquired absence of both cervix and uterus; Z87.891 Personal history of nicotine dependence; Z94.9 Transplanted organ and tissue status, unspecified; Z88.0 Allergy status to penicillin; Z88.2 Allergy status to sulfonamides; Z79.899 Other long term (current) drug therapy; Z79.52 Long term (current) use of systemic steroids; Z79.4 Long term (current) use of insulin
CPT/HCPCS: 71010; 73030-LT; 73060-LT; 99284; A9270-GY